=== PATIENT | female | born 1935 | race Caucasian/White ===

== ENCOUNTER → 2017-04-21 | Outpatient (CLI) | payer OTHER | END | disposition home or self-care (01) | LOC: CT 09:55 | PROVIDERS: ATTEND Specialist | DX: S22.41XA Multiple fractures of ribs, right side, initial encounter for closed fracture (principal); K80.20 Calculus of gallbladder without cholecystitis without obstruction; I70.0 Atherosclerosis of aorta; J43.2 Centrilobular emphysema; R91.8 Other nonspecific abnormal finding of lung field; N28.1 Cyst of kidney, acquired; X58.XXXA Exposure to other specified factors, initial encounter; Y93.89 Activity, other specified; Y92.89 Other specified places as the place of occurrence of the external cause; Y99.8 Other external cause status | CPT/HCPCS: 71250 ==

== ENCOUNTER 2018-05-11 10:47 | Outpatient (CLI) | payer OTHER | END 2018-05-11 23:59 | disposition home or self-care (01) | LOC: RAD 10:47 | PROVIDERS: ATTEND Specialist | DX: C34.90 Malignant neoplasm of unspecified part of unspecified bronchus or lung (principal); J43.9 Emphysema, unspecified; R91.1 Solitary pulmonary nodule; I25.10 Atherosclerotic heart disease of native coronary artery without angina pectoris; I70.0 Atherosclerosis of aorta; K44.9 Diaphragmatic hernia without obstruction or gangrene; D35.02 Benign neoplasm of left adrenal gland; D35.01 Benign neoplasm of right adrenal gland | CPT/HCPCS: 71250 ==

== ENCOUNTER → 2018-07-05 | Outpatient (CLI) | payer OTHER | END | disposition home or self-care (01) | LOC: LAB 07-04 13:07 | DX: C34.90 Malignant neoplasm of unspecified part of unspecified bronchus or lung (principal) ==

== ENCOUNTER 2021-10-19 22:08 | Inpatient (IN) | payer MEDICARE, OTHER ==
[~2021-10-19] VITALS: Ht 165.1 cm; Wt 75.3 kg
--- NOTE | 2021-10-19 22:43 | NUR ---
[facility] and low blood pressure.
[2021-10-19] MEDS ORDERED: IV NORMAL SALINE 1000 ML BAG IV ONE (23:15)
--- NOTE | 2021-10-19 23:36 | NUR ---
pt is a very difficult iv start, multiple nurses have tried. Dr. Morocho made aware. Ricardo RICHTER is trying to start an iv as well.
[2021-10-19 23:55] LABS: HEMATOCRIT 27.8 % (31.2-41.9); MEAN CORPUSCULAR VOLUME 95.9 fL (75.5-95.3); PLATELET COUNT (AUTO) 271 K/uL (179-408)
[2021-10-19 23:59] LABS: CARBON DIOXIDE 25 mmol/L (21-32); CHLORIDE 101 mmol/L (98-107); CREATININE 2.6 mg/dL (0.6-1.3); GLUCOSE 121 mg/dL (74-106); POTASSIUM 4.3 mmol/L (3.5-5.1); UREA NITROGEN, BLOOD 36 mg/dL (7-18)
[2021-10-20] VITALS (7 sets, daily range): BP systolic 70–129; BP diastolic 26–46
[2021-10-20 00:08] LABS: ALANINE AMINOTRANSFERASE 162 U/L (14-59); ALKALINE PHOSPHATASE 99 U/L (50-136); ASPARTATE AMINOTRANSFERASE 335 U/L (15-37); BILIRUBIN,DIRECT 5.2 mg/dL (0.0-0.2); BILIRUBIN,TOTAL 5.7 mg/dL (0.2-1.0); TOTAL PROTEIN, SERUM 5.8 g/dL (6.4-8.2)
[2021-10-20] MEDS ORDERED: FLUDROCORTISONE ACETATE 0.1 MG TABLET PO SCH (00:15)
[2021-10-20] MEDS ORDERED: CEFTAZIDIME 1 G in IV DEXTROSE 5% 50 ML IV ONE (00:15)
[2021-10-20] MEDS ORDERED: IV NORMAL SALINE 1000 ML BAG IV ONE (00:15)
[2021-10-20] MEDS ORDERED: HYDROCORTISONE SOD SUCCINATE 100 MG/2 ML VIAL IV SCH (00:15)
[2021-10-20] MEDS ORDERED: VANCOMYCIN IV 1,000 MG in IV DEXTROSE 5% 250 ML IV ONE (00:15)
--- NOTE | 2021-10-20 00:20 | NUR ---
Patient is able to tolerate fluids PO
[2021-10-20] MEDS ORDERED: LISI10TA29 PO (00:21)
[2021-10-20] MEDS ORDERED: VIT1CAPS44 PO (00:21)
[2021-10-20] MEDS ORDERED: ESCI-9 PO (00:21)
[2021-10-20] MEDS ORDERED: SODI15DR6 OP (00:21)
[2021-10-20] MEDS ORDERED: MELA3TAB41 PO (00:21)
[2021-10-20] MEDS ORDERED: NYST15CR2 TP (00:21)
[2021-10-20] MEDS ORDERED: ASPI81TA31 PO (00:21)
[2021-10-20] MEDS ORDERED: CRAN200C PO (00:21)
[2021-10-20] MEDS ORDERED: FURO20TA4 PO (00:21)
[2021-10-20] MEDS ORDERED: FENO145T21 PO (00:21)
[2021-10-20] MEDS ORDERED: LOPE2CAP PO (00:21)
[2021-10-20] MEDS ORDERED: SENN-261 PO (00:21)
[2021-10-20] MEDS ORDERED: GLIP2.5T3 PO (00:21)
[2021-10-20] MEDS ORDERED: ASCO500C18 PO (00:21)
[2021-10-20] MEDS ORDERED: TURM1CAP2 PO (00:21)
[2021-10-20] MEDS ORDERED: CHOL10005 PO (00:21)
[2021-10-20] MEDS ORDERED: LIDO30AD10 TD (00:21)
[2021-10-20] MEDS ORDERED: GREE150C PO (00:21)
[2021-10-20] MEDS ORDERED: CLOT15CR5 TP (00:21)
[2021-10-20] MEDS ORDERED: METO25TA6 PO (00:21)
[2021-10-20] MEDS ORDERED: UMEC62.5 IH (00:21)
[2021-10-20] MEDS ORDERED: LEVE500T20 PO (00:21)
[2021-10-20] MEDS ORDERED: FOLI1TAB94 PO (00:21)
[2021-10-20] MEDS ORDERED: MULT1TAB70 PO (00:21)
[2021-10-20] MEDS ORDERED: TRAM50TA2 PO ×2 (00:21)
[2021-10-20] MEDS ORDERED: MAGN400O6 PO (00:21)
[2021-10-20] MEDS ORDERED: DOCU100C36 PO (00:21)
[2021-10-20] MEDS ORDERED: CAMP85GE TP (00:21)
[2021-10-20] MEDS ORDERED: ALBU8.5H8 IH (00:21)
[2021-10-20] MEDS ORDERED: POLY17PO4 PO (00:21)
[2021-10-20] MEDS ORDERED: LORA10TA7 PO (00:21)
[2021-10-20] MEDS ORDERED: DICL100G31 TP (00:21)
[2021-10-20] MEDS ORDERED: ATOR20TA PO (00:21)
[2021-10-20] MEDS ORDERED: ONDA4TAB5 PO (00:21)
[2021-10-20] MEDS ORDERED: ACET-2154 PO (00:21)
[2021-10-20] MEDS ORDERED: DICLOFENAC SODIUM TOP (00:21)
[2021-10-20] MEDS ORDERED: OMEP20CA15 PO (00:21)
--- NOTE | 2021-10-20 00:30 | NUR ---
pt taken to cat scan.
[2021-10-20] MEDS ORDERED: CEFTAZIDIME 1 G VIAL ONE (00:35)
[2021-10-20] MEDS ORDERED: HYDROCORTISONE SOD SUCCINATE 100 MG/2 ML VIAL IV ONE (00:36)
[2021-10-20] MEDS ORDERED: VANCOMYCIN IV 200 ML ONE (00:36)
[2021-10-20] MEDS ORDERED: FLUDROCORTISONE ACETATE 0.1 MG TABLET ONE (00:37)
--- NOTE | 2021-10-20 00:44 | NUR ---
pt returned from cat scan.
--- NOTE | 2021-10-20 00:54 | NUR ---
informed by wilfrid jansen that pt is ok to be admitted here per her insurance.
--- NOTE | 2021-10-20 01:18 | NUR ---
US tech at bedside
--- NOTE | 2021-10-20 01:20 | NUR ---
ultrasound in room
[2021-10-20 01:50] LABS: *BILIRUBIN,URIN 1+ (NEGATIVE); *BLOOD, URINE NEGATIVE (NEGATIVE); *CLARITY,URINE CLEAR (CLEAR); *COLOR,URINE AMBER (YELLOW); *KETONES,URINE NEGATIVE (NEGATIVE); LEUKOCYTE ESTERASE ,URINE TRACE (NEGATIVE); NITRITE, URINE NEGATIVE (NEGATIVE); PH,URINE 5.5 (5.0-8.0); UGLUCOSE NEGATIVE (NEGATIVE)
--- NOTE | 2021-10-20 01:55 | NUR ---
Called [facility] for panel call. Dr Zelaya - immigration law specialist
--- NOTE | 2021-10-20 01:59 | NUR ---
Dr Morocho speaking with Dr Lobo
[2021-10-20] MEDS ORDERED: ONDANSETRON 4 MG/2 ML VIAL IV PRN (02:00)
[2021-10-20] MEDS ORDERED: MORPHINE SULFATE 2 MG/1 ML DISP.SYRIN IV PRN (02:00)
[2021-10-20] MEDS ORDERED: ACETAMINOPHEN 325 MG TABLET PO PRN (02:00)
[2021-10-20] MEDS ORDERED: hydrALAZINE HCL 20 MG/1 ML VIAL IV PRN (02:00)
--- NOTE | 2021-10-20 02:02 | NUR ---
called Dr Escamilla - surgery personal injury legal assistant. On going call with Dr Morocho
--- NOTE | 2021-10-20 02:04 | NUR ---
Called 3rd floor for TELE bed. Spoke with Divina RICHTER. Will call back for room number
[2021-10-20 02:10] LABS: BACTERIA,URINE FEW /HPF (NONE SEEN); SQUAMOUS EPITHELIAL CELL,UR FEW /HPF (NONE SEEN)
--- NOTE | 2021-10-20 03:01 | NUR ---
report given to Keri RICHTER, pt to go to room 302
--- NOTE | 2021-10-20 03:30 | NUR ---
RECEIVED PATIENT VIA GURNEY FROM ER. PATIENT IS ALERT TO SELF. AGITATED WITH CARE. PLACED ON TELE SR WITH BBB. PATIENT MADE COMFORTABLE IN BED. BED ALARM ON. CALL LIGHT IN REACH. ALL NEEDS ATTENDED. WILL CONTINUE TO MONITOR AND ASSESS.
--- NOTE | 2021-10-20 03:38 | NUR ---
pt transferred to room 302 via bridgette with RN. NEELAM Saavedra in room to accept the pt. pt transported with all belongings.
[2021-10-20] MEDS: IV NS 1000 ML 1,000 ML IV SCH ×2 (03:58→13:16)
--- NOTE | 2021-10-20 04:10 | NUR ---
MIGUELINA FROM [facility] CAME TO ROOM TO TAKE PATIENT DOWN TO [facility]AN. PATIENT IS ASLEEP AT THIS TIME AND WHEN AWOKEN, PATIENT BECOMES VERY AGITATED. PATIENT IS UNABLE TO GO DOWN AT THIS TIME. BOTTOM TURNING LATHE TURNER NOTIFIED.
[2021-10-20] MEDS ORDERED: DOCUSATE SODIUM 100 MG CAPSULE PO SCH (09:00)
[2021-10-20] MEDS ORDERED: CEFEPIME HCL 1 G in IV DEXTROSE 5% 50 ML IV SCH (09:00)
[2021-10-20] MEDS: CEFEPIME HCL 1 G in IV DEXTROSE 5% 50 ML IV SCH ×2 (10:00→21:04)
[2021-10-20] MEDS ORDERED: ACETAMINOPHEN 650 MG SUPP.RECT RC PRN (10:30)
[2021-10-20] MEDS ORDERED: LORAZEPAM 2 MG/1 ML VIAL IV PRN (10:45)
[2021-10-20] MEDS ORDERED: IV NORMAL SALINE 500 ML IV ONE (11:00)
--- NOTE | 2021-10-20 11:00 | NUR ---
Dr. Aguilar made aware of patient blood pessure 99/26 and 70/44, taken in each arm. patient is awake and alert. Still noted with defensive behavior, worrisome and discontent. Patient is able to make needs known, confusion still noted.
--- NOTE | 2021-10-20 12:15 | NUR ---
Blood pressure is 118/32, pulse is 59. remains AAO. Patient is screaming and hitting staff during blood draw. 2 person assist need and constant distraction.
--- NOTE | 2021-10-20 12:19 | NUR ---
PATIENT WAS SCHEDULED FOR MRCP AT NOON,ON HOLD FOR NOW PATIENT IS INSTABLE FOR NOW PER NURSE.
[2021-10-20 12:21] LABS: HEMATOCRIT 24.5 % (31.2-41.9); MEAN CORPUSCULAR HEMOGLOBIN 31.7 uug (24.7-32.8); MEAN CORPUSCULAR VOLUME 97.8 fL (75.5-95.3); PLATELET COUNT (AUTO) 217 K/uL (179-408)
[2021-10-20 12:38] LABS: ALANINE AMINOTRANSFERASE 124 U/L (14-59); ALKALINE PHOSPHATASE 80 U/L (50-136); ASPARTATE AMINOTRANSFERASE 236 U/L (15-37); BILIRUBIN,TOTAL 3.7 mg/dL (0.2-1.0); CARBON DIOXIDE 21 mmol/L (21-32); CHLORIDE 104 mmol/L (98-107); CREATININE 1.8 mg/dL (0.6-1.3); GLUCOSE 127 mg/dL (74-106); MAGNESIUM 1.9 mg/dL (1.8-2.4); PHOSPHOROUS 3.6 mg/dL (2.5-4.9); TOTAL PROTEIN, SERUM 4.9 g/dL (6.4-8.2); UREA NITROGEN, BLOOD 35 mg/dL (7-18)
[2021-10-20 13:21] LABS: IRON, SERUM 44 ug/dL (50-175)
[2021-10-20 14:38] LABS: THYROID STIMULATING HORMONE 0.627 mIU/mL (0.358-3.740)
[2021-10-20] MEDS: HEPARIN SODIUM,PORCINE 5,000 UNITS/ML VIAL SQ SCH (16:54)
--- NOTE | 2021-10-20 17:12 | NUR ---
Seen by Dr. Aguilar and aware of blood pressure remaining at 93/30. No new orders at this time.
--- NOTE | 2021-10-20 19:34 | NUR ---
late entry- one bolus of 500ml NS order received from Dr. Aguilar. Entry entered late and signed for. Bolus was given at 11am.
--- NOTE | 2021-10-20 19:35 | NUR ---
Patient alert oriented, no sob no chest pain, tele monitor sinus rhythm sinus marissa, BP stable at this time, no complain of pain at this time, assisted with toileting, cont to monitor.
[2021-10-21] VITALS: BP 122/32
--- NOTE | 2021-10-21 01:08 | NUR ---
Patient IV site still patent and flush well but when patient bend her hand the iv catheter bend and cause to machine to beep, patient complain of the noise, but when offered to change the IV site but refused, IV hydration on hold at this time, will get an order for midline in AM, patient drink fluids at this time, cont to monitor.
[2021-10-21 04:00] VITALS: BP 121/44
--- NOTE | 2021-10-21 06:37 | NUR ---
Patient alert oriented, IV hydration is discontinued, no further complain of back pain, no sob no chest pain, tele monitor sinus rhythm, bp stable continue to monitor.
[2021-10-21 06:56] LABS: HEMATOCRIT 27.3 % (31.2-41.9); MEAN CORPUSCULAR HEMOGLOBIN 32.9 uug (24.7-32.8); MEAN CORPUSCULAR VOLUME 101.5 fL (75.5-95.3); PLATELET COUNT (AUTO) 221 K/uL (179-408)
[2021-10-21 07:36] LABS: ALANINE AMINOTRANSFERASE 113 U/L (14-59); ALKALINE PHOSPHATASE 112 U/L (50-136); ASPARTATE AMINOTRANSFERASE 199 U/L (15-37); CARBON DIOXIDE 23 mmol/L (21-32); CHLORIDE 106 mmol/L (98-107); CREATININE 1.6 mg/dL (0.6-1.3); GLUCOSE 77 mg/dL (74-106); PHOSPHOROUS 1.9 mg/dL (2.5-4.9); POTASSIUM 3.7 mmol/L (3.5-5.1); TOTAL PROTEIN, SERUM 5.4 g/dL (6.4-8.2); UREA NITROGEN, BLOOD 32 mg/dL (7-18)
[2021-10-21 08:06] LABS: MAGNESIUM 1.9 mg/dL (1.8-2.4)
[2021-10-21] MEDS: HEPARIN SODIUM,PORCINE 5,000 UNITS/ML VIAL SQ SCH ×2 (08:18→17:16)
[2021-10-21] MEDS: CEFEPIME HCL 1 G in IV DEXTROSE 5% 50 ML IV SCH ×2 (09:15→21:27)
[2021-10-21 11:40] VITALS: BP_SYST 109; BP_SYST 148; BP_DIAS 46; BP_DIAS 51
[2021-10-21] MEDS ORDERED: LEVE250T4 PO (13:59)
[2021-10-21 15:53] VITALS: BP 150/45
[2021-10-21] MEDS ORDERED: SODIUM PHOSPHATE MM 15 MMOL in IV NORMAL SALINE 250 ML IV ONE (17:00)
[2021-10-21] MEDS: IV D5/ 0.9% NACL 1,000 ML IV PRN (17:04)
--- NOTE | 2021-10-21 18:00 | NUR ---
Seen by ANAID Bernabe, and Dr. Aguilar. Patient to be NPO.
--- NOTE | 2021-10-21 19:15 | NUR ---
Received patient on bed, alert, oriented to self, place and person, forgetful at times. On room air, not in respiratory distress. No complaint of pain at this time. Safety precautions provided, call light within reach Addendum: 10/21/21 at 2042 by JENNIE KENT RN RN reminded on NPO.
[2021-10-21 20:00] VITALS: BP 143/36
[2021-10-21] MEDS: METRONIDAZOLE 500 MG/NS 100ML 500 MG in PREMIXED 1 EACH IV SCH (20:11)
[2021-10-22] MEDS: METRONIDAZOLE 500 MG/NS 100ML 500 MG in PREMIXED 1 EACH IV SCH ×3 (03:38→23:18)
[2021-10-22 04:00] VITALS: BP 134/44
--- NOTE | 2021-10-22 06:24 | NUR ---
Slept well, no complaint of pain, Due antibiotics given, kept on NPO, kept on IVF D5 NS at 60cc/hour. No complaint of abdominal pain.
[2021-10-22 06:42] LABS: HEMATOCRIT 26.2 % (31.2-41.9); MEAN CORPUSCULAR HEMOGLOBIN 32.2 uug (24.7-32.8); MEAN CORPUSCULAR VOLUME 94.4 fL (75.5-95.3); PLATELET COUNT (AUTO) 286 K/uL (179-408)
[2021-10-22 07:21] LABS: BILIRUBIN,TOTAL 2.2 mg/dL (0.2-1.0); CREATININE 1.2 mg/dL (0.6-1.3); MAGNESIUM 1.8 mg/dL (1.8-2.4); PHOSPHOROUS 1.7 mg/dL (2.5-4.9); POTASSIUM 3.4 mmol/L (3.5-5.1); TOTAL PROTEIN, SERUM 5.3 g/dL (6.4-8.2)
[2021-10-22] MEDS ORDERED: POTASSIUM CHLORIDE 20 MEQ POWDER PACKET PO ONE (08:15)
--- NOTE | 2021-10-22 09:00 | NUR ---
Attempted to place IV times 2, unsuccessful at this time. Patient refusing to attempt IV one more time. IV to left wrist still patent and intact- will use this IV for IV medications ordered.
[2021-10-22] MEDS: HEPARIN SODIUM,PORCINE 5,000 UNITS/ML VIAL SQ SCH ×2 (09:11→21:22)
[2021-10-22] MEDS: POTASSIUM CHLORIDE 50 ML IV SCH ×4 (09:12→13:57)
[2021-10-22] MEDS ORDERED: NEUTRA PHOS PACKET PO ONE (10:30)
[2021-10-22 11:00] VITALS: BP 158/52
[2021-10-22] MEDS: CEFEPIME HCL 1 G in IV DEXTROSE 5% 50 ML IV SCH ×2 (11:26→23:56)
--- NOTE | 2021-10-22 12:30 | NUR ---
Patient denies any abd pain or nausea. Patient placed back on fluid diet, tolerates well.
[2021-10-22 16:00] VITALS: BP 127/31
--- NOTE | 2021-10-22 19:15 | NUR ---
Patient found walking in hallway. Patient was soiled and had pulled out her IV. Able to redirect and assist with 2 person assist to bathroom. Hygiene provided and patient assisted back to bed. Re-instructed performance consultant light use and bed alarm turned on. Safety measures continued. Patient has no injuries.
[2021-10-22 20:32] VITALS: BP 141/46
--- NOTE | 2021-10-22 23:56 | NUR ---
Flagyl IV and Maxepime IV administered late d/t patient accidentally pulled out her IV.
[2021-10-23 04:40] VITALS: BP 150/54
[2021-10-23] MEDS: METRONIDAZOLE 500 MG/NS 100ML 500 MG in PREMIXED 1 EACH IV SCH ×3 (06:00→20:08)
--- NOTE | 2021-10-23 06:16 | NUR ---
Patient slept well, easy to arouse. Not in resp distress, denies chest pain. Needs assessed and attended to. Bed in locked and low position. Call light within easy reach
--- NOTE | 2021-10-23 06:18 | NUR ---
Patient slept well, easy to arouse alert to self and forgetful. Not in resp distress, denies chest pain. Assisted to the bathroom. Needs assessed and attended to. Bed in locked and low position. Call light within easy reach.
[2021-10-23] MEDS: IV D5/ 0.9% NACL 1,000 ML IV PRN (06:44)
[2021-10-23] MEDS: HEPARIN SODIUM,PORCINE 5,000 UNITS/ML VIAL SQ SCH ×2 (08:13→22:10)
[2021-10-23] MEDS: CEFEPIME HCL 1 G in IV DEXTROSE 5% 50 ML IV SCH ×2 (09:24→22:09)
[2021-10-23 11:19] VITALS: BP 135/49
[2021-10-23 12:12] LABS: MEAN CORPUSCULAR HEMOGLOBIN 31.5 uug (24.7-32.8); MEAN CORPUSCULAR VOLUME 95.9 fL (75.5-95.3); PLATELET COUNT (AUTO) 334 K/uL (179-408)
[2021-10-23 12:28] LABS: POTASSIUM 4.2 mmol/L (3.5-5.1); TOTAL PROTEIN, SERUM 5.3 g/dL (6.4-8.2)
[2021-10-23 12:55] LABS: MAGNESIUM 1.9 mg/dL (1.8-2.4); PHOSPHOROUS 1.2 mg/dL (2.5-4.9)
[2021-10-23 16:30] VITALS: BP 131/48
[2021-10-23] MEDS ORDERED: SODIUM PHOSPHATE MM 15 MMOL in IV NORMAL SALINE 250 ML IV ONE (17:00)
[2021-10-23 20:40] VITALS: BP 152/63
[2021-10-24] MEDS: METRONIDAZOLE 500 MG/NS 100ML 500 MG in PREMIXED 1 EACH IV SCH (04:07)
--- NOTE | 2021-10-24 05:14 | NUR ---
Patient slept intermittently, in no acute distress. No c/o pain/discomfort. IV antibiotic given, @ 0500 c/o pain on right arm, noted w/ redness and swelling around IV insertion site. Patient refused new IV insertion.
[2021-10-24 07:32] LABS: BILIRUBIN,TOTAL 1.7 mg/dL (0.2-1.0); CREATININE 0.9 mg/dL (0.6-1.3); MAGNESIUM 1.7 mg/dL (1.8-2.4); PHOSPHOROUS 1.7 mg/dL (2.5-4.9); POTASSIUM 3.4 mmol/L (3.5-5.1); TOTAL PROTEIN, SERUM 5.1 g/dL (6.4-8.2)
[2021-10-24 07:40] LABS: HEMATOCRIT 27.9 % (31.2-41.9); MEAN CORPUSCULAR HEMOGLOBIN 31.8 uug (24.7-32.8); MEAN CORPUSCULAR VOLUME 95.9 fL (75.5-95.3); PLATELET COUNT (AUTO) 318 K/uL (179-408)
[2021-10-24] MEDS: HEPARIN SODIUM,PORCINE 5,000 UNITS/ML VIAL SQ SCH (08:02)
[2021-10-24 08:55] LABS: NEUTROPHILS % (MANUAL) 0 % (42-75)
[2021-10-24] MEDS ORDERED: POTASSIUM PHOSPHATE MM 15 MMOL in IV NORMAL SALINE 250 ML IV ONE (09:30)
[2021-10-24] MEDS ORDERED: MAGNESIUM SULFATE/D5W 100 ML IV SCH (09:30)
[2021-10-24] MEDS ORDERED: MAGNESIUM OXIDE 400 MG TABLET PO ONE ×2 (09:30→13:45)
[2021-10-24] MEDS ORDERED: POTASSIUM CHLORIDE 20 MEQ TAB.PRT.SR PO SCH (09:45)
[2021-10-24 11:17] VITALS: BP 146/57
[2021-10-24] MEDS ORDERED: LISINOPRIL 10 MG TABLET PO ONE (13:41)
[2021-10-24] MEDS ORDERED: NEUTRA PHOS PACKET PO ONE (13:45)
[2021-10-24] MEDS ORDERED: LEVO500T90 PO (13:46)
[2021-10-24] MEDS ORDERED: ACID1TAB4 PO (13:46)
[2021-10-24] MEDS ORDERED: METR500T PO (13:46)
[2021-10-24 13:56] VITALS: BP 146/57
--- NOTE | 2021-10-24 15:15 | NUR ---
dc orders received noted and carried out.dc instruction and education given to the pt and her daughter.pt left the facility via private car in stable condition
== END 2021-10-24 15:17 | DRG 871 ==
LOC: ER 22:12 → TELE3 10-20 02:00 → MEDSURG3 10-21 09:54
PROVIDERS: ADMIT Internal Medicine; ATTEND Internal Medicine
DX: A41.9 Sepsis, unspecified organism (principal); E43 Unspecified severe protein-calorie malnutrition; G92.8 Other toxic encephalopathy; N17.0 Acute kidney failure with tubular necrosis; N39.0 Urinary tract infection, site not specified; R17 Unspecified jaundice; G93.40 Encephalopathy, unspecified; C79.51 Secondary malignant neoplasm of bone; K80.60 Calculus of gallbladder and bile duct with cholecystitis, unspecified, without obstruction; I13.0 Hypertensive heart and chronic kidney disease with heart failure and stage 1 through stage 4 chronic kidney disease, or unspecified chronic kidney disease; I44.7 Left bundle-branch block, unspecified; D64.9 Anemia, unspecified; E78.5 Hyperlipidemia, unspecified; E83.39 Other disorders of phosphorus metabolism; I25.10 Atherosclerotic heart disease of native coronary artery without angina pectoris; Z20.822 Contact with and (suspected) exposure to COVID-19; Z86.73 Personal history of transient ischemic attack (TIA), and cerebral infarction without residual deficits; Z87.891 Personal history of nicotine dependence; Z88.0 Allergy status to penicillin; Z90.710 Acquired absence of both cervix and uterus; Z85.118 Personal history of other malignant neoplasm of bronchus and lung; Z92.21 Personal history of antineoplastic chemotherapy; R74.01 Elevation of levels of liver transaminase levels; K52.9 Noninfective gastroenteritis and colitis, unspecified; R53.1 Weakness; F01.50 Vascular dementia, unspecified severity, without behavioral disturbance, psychotic disturbance, mood disturbance, and anxiety; K57.30 Diverticulosis of large intestine without perforation or abscess without bleeding; I50.9 Heart failure, unspecified; N18.9 Chronic kidney disease, unspecified; J44.9 Chronic obstructive pulmonary disease, unspecified; I35.8 Other nonrheumatic aortic valve disorders; I95.9 Hypotension, unspecified
CPT/HCPCS: 36415; 70030-TC; 71045; 83550; 83605; 83690; 83735; 83921; 84100; 84443; 84484; 85025; 85730; 87040; 87086; 93005; 93307; 97161; A4663; G0378; J0692; J0713; J1644; J1720; J2060; J2270; J2405; J3370; J3480; J3490; J7040; J7042